=== PATIENT | female | born 1955 | race Caucasian/White ===

== ENCOUNTER 2020-11-13 15:13 | Outpatient (CLI) | payer MEDICARE, OTHER | END 2020-11-13 15:14 | disposition home or self-care (01) | LOC: BICMAMMO 15:13 | PROVIDERS: ATTEND Family Medicine | DX: Z12.31 Encounter for screening mammogram for malignant neoplasm of breast (principal); Z80.3 Family history of malignant neoplasm of breast; Z98.82 Breast implant status | CPT/HCPCS: 77063; 77067 ==

== ENCOUNTER 2020-11-13 15:49 | Outpatient (CLI) | payer MEDICARE, OTHER | END 2020-11-13 15:50 | disposition home or self-care (01) | LOC: BICRAD 15:49 | PROVIDERS: ATTEND Family Medicine | DX: G58.8 Other specified mononeuropathies (principal); M47.814 Spondylosis without myelopathy or radiculopathy, thoracic region; M43.13 Spondylolisthesis, cervicothoracic region | CPT/HCPCS: 72072 ==

== ENCOUNTER 2022-04-07 14:48 | Outpatient (CLI) | payer MEDICARE, OTHER | END 2022-04-07 14:49 | disposition home or self-care (01) | LOC: BICMAMMO 14:48 | PROVIDERS: ATTEND Internal Medicine Rheumatology | DX: M81.0 Age-related osteoporosis without current pathological fracture (principal); R06.09 Other forms of dyspnea; M85.88 Other specified disorders of bone density and structure, other site; Z98.82 Breast implant status | CPT/HCPCS: 71046; 77080 ==

== ENCOUNTER 2022-08-16 08:33 | Outpatient (CLI) | payer MEDICARE, OTHER | END 2022-08-16 08:34 | disposition home or self-care (01) | LOC: RAD 08:33 | PROVIDERS: ATTEND Internal Medicine Critical Care Medicine | DX: R06.00 Dyspnea, unspecified (principal) | CPT/HCPCS: 71046 ==

== ENCOUNTER 2024-02-17 15:06 | Inpatient (IN) | payer MEDICARE, OTHER ==
[2024-02-17] MEDS ORDERED: Acetaminophen 650 MG Suppository PR PRN (15:34)
[2024-02-17] MEDS ORDERED: Communication Order-Pharmacy FS SCH (15:35)
[2024-02-17 16:17] VITALS: BMI 35.1
[2024-02-17] MEDS: Piperacillin/Tazobactam 3.375 GM in Sodium Chloride 0.9% 100 ML IVPB SCH (16:36)
[2024-02-17] MEDS: Lactated Ringer's 1,000 ML IV SCH (16:36)
[2024-02-17] MEDS: FLU (Fluad Triv) TS24-25 (65UP)/MF59C/PF 45 MCG/0.5 ML Syringe IM ONE (16:47)
[2024-02-17 16:51] LABS: #Basophils 0.04 10x3/uL (0.0-0.2); %Basophils 0.3 % (0.0-1.0); %Eosinophils 0.7 % (0.0-10.0); %Lymphocytes 3.8 % (21.0-51.0); %Monocytes 3.9 % (0.0-10.0); %Neutrophils 89.1 % (42.0-75.0); Hematocrit 31.3 % (36.0-47.0); Hemoglobin 9.8 g/dL (12.0-16.0); Mean Corpuscular HGB CONC 31.3 g/dL (32.0-36.0); Mean Corpuscular Hemoglobin 29.5 pg (27.0-31.0); Mean Corpuscular Volume 94.3 fL (78.0-98.0); Mean Platelet Volume 12.3 fL (7.4-10.4); Platelet Count 192 10x3/uL (130-400); RBC Distribution Width 12.9 % (11.5-14.5); Red Blood Cell (RBC) Count 3.32 mill/uL (4.20-5.40)
[2024-02-17 17:06] LABS: INR-International Normal Ratio 1.2; PTT 33.2 sec (22.9-36.1)
[2024-02-17 17:09] LABS: Anion Gap 12 mmol/L (10-20); BUN (Urea Nitrogen) 39 mg/dL (9.8-20.1); Calc. Creatinine Clearance 27 mL/min (70-130); Calcium 7.9 mg/dL (7.8-10.44); Carbon Dioxide 19 mmol/L (23-31); Chloride 110 mmol/L (98-107); Estimated GFR 23; Glucose 81 mg/dL (80-115); Magnesium 1.6 mg/dL (1.6-2.6); Phosphorus 2.8 mg/dL (2.3-4.7); Potassium 3.7 mmol/L (3.5-5.1); Sodium 137 mmol/L (136-145)
[2024-02-17] MEDS ORDERED: Piperacillin/Tazobactam 3.375 GM in Sodium Chloride 0.9% 100 ML IVPB SCH (19:45)
[2024-02-17] MEDS: Acetaminophen 325 MG TAB PO PRN (20:23)
[2024-02-17] MEDS: Famotidine/PF 20 mg/2ml Vial SLOW IVP SCH (20:24)
[2024-02-17] MEDS: Melatonin 3 MG TAB PO SCH (21:09)
[2024-02-17] MEDS: HYDROcodone/Acetaminophen 10/325 mg Tablet PO SCH (23:28)
[2024-02-17] MEDS: tiZANidine HCl 4 MG TAB PO PRN (23:28)
[2024-02-18 07:03] LABS: #Basophils 0.05 10x3/uL (0.0-0.2); %Basophils 0.4 % (0.0-1.0); %Eosinophils 0.7 % (0.0-10.0); %Lymphocytes 5.5 % (21.0-51.0); %Monocytes 5.3 % (0.0-10.0); %Neutrophils 87.1 % (42.0-75.0); Hematocrit 34.1 % (36.0-47.0); Hemoglobin 10.3 g/dL (12.0-16.0); Mean Corpuscular HGB CONC 30.2 g/dL (32.0-36.0); Mean Corpuscular Hemoglobin 29.9 pg (27.0-31.0); Mean Corpuscular Volume 99.1 fL (78.0-98.0); Mean Platelet Volume 12.3 fL (7.4-10.4); Platelet Count 211 10x3/uL (130-400); RBC Distribution Width 13.2 % (11.5-14.5); Red Blood Cell (RBC) Count 3.44 mill/uL (4.20-5.40)
[2024-02-18 07:46] LABS: Anion Gap 18 mmol/L (10-20); BUN (Urea Nitrogen) 31 mg/dL (9.8-20.1); Calc. Creatinine Clearance 35 mL/min (70-130); Calcium 8.1 mg/dL (7.8-10.44); Carbon Dioxide 13 mmol/L (23-31); Chloride 112 mmol/L (98-107); Estimated GFR 32; Glucose 45 mg/dL (80-115); Potassium 3.7 mmol/L (3.5-5.1); Sodium 139 mmol/L (136-145)
[2024-02-18] MEDS: Enoxaparin 40 MG (0.4 mL) SYRINGE SC SCH (07:54)
[2024-02-18] MEDS: HYDROcodone/Acetaminophen 10/325 mg Tablet PO SCH (07:55)
[2024-02-18] MEDS: Dextrose 5% in Water 1,000 ML IV SCH (08:08)
[2024-02-18] MEDS: Dextrose 50% Abboject 50 ML SYRINGE SLOW IVP PRN (08:36)
[2024-02-18] MEDS: Ondansetron PF 4 MG/2 ML Vial IVP PRN (08:37)
[2024-02-18] MEDS: Pantoprazole 40 MG VIAL IVP SCH (10:39)
[2024-02-18 15:21] VITALS: BMI 35.1
[2024-02-18] MEDS: Dextrose 5 %-0.45 % NaCl 1,000 ML IV SCH (20:08)
[2024-02-19] MEDS: Pantoprazole 40 MG VIAL IVP SCH (07:43)
[2024-02-19] MEDS: Enoxaparin 30 MG (0.3 mL) SYRINGE SC SCH (08:36)
[2024-02-19] MEDS ORDERED: PROPOFOL 20 ML ONE (10:23)
[2024-02-19] MEDS ORDERED: Ondansetron PF 4 MG/2 ML Vial ONE (10:24)
[2024-02-19] MEDS ORDERED: Lidocaine 1% PF 5 ML VIAL ONE (10:24)
[2024-02-19] MEDS ORDERED: SUCCINYLCHOLINE/SOD CL,ISO/PF 200 MG/10 ML SYRINGE FS ONE (10:24)
[2024-02-19] MEDS ORDERED: Rocuronium Bromide 10 MG/ML (10ML VIAL) ONE (10:24)
[2024-02-19] MEDS ORDERED: cefOXitin 2 GM VIAL ONE (10:56)
[2024-02-19] MEDS ORDERED: SUGAMMADEX SODIUM 200 MG/2 ML VIAL ONE (11:54)
[2024-02-19] MEDS ORDERED: fentaNYL 50 mcg/mL 1 mL Vial ONE ×3 (12:04→12:35)
[2024-02-19] MEDS ORDERED: HYDROmorphone 0.5 MG/0.5 ML SYRINGE ONE ×2 (12:15→12:35)
[2024-02-19 12:40] LABS: #Basophils 0.07 10x3/uL (0.0-0.2); %Basophils 0.6 % (0.0-1.0); %Eosinophils 1.6 % (0.0-10.0); %Lymphocytes 9.7 % (21.0-51.0); %Monocytes 12.2 % (0.0-10.0); %Neutrophils 72.4 % (42.0-75.0); Hematocrit 36.7 % (36.0-47.0); Hemoglobin 11.9 g/dL (12.0-16.0); Mean Corpuscular HGB CONC 32.4 g/dL (32.0-36.0); Mean Corpuscular Hemoglobin 29.8 pg (27.0-31.0); Mean Corpuscular Volume 91.8 fL (78.0-98.0); Mean Platelet Volume 11.5 fL (7.4-10.4); Platelet Count 279 10x3/uL (130-400); RBC Distribution Width 13.2 % (11.5-14.5)
[2024-02-19] MEDS ORDERED: Dextrose 5% in Water 1,000 ML IV PRN (12:43)
[2024-02-19] MEDS ORDERED: Glucagon 1 MG/ML KIT IM PRN (12:43)
[2024-02-19] MEDS ORDERED: Calcium Carbonate 500 MG ChewTAB PO PRN (12:43)
[2024-02-19] MEDS ORDERED: Dextrose 50% Abboject 50 ML SYRINGE SLOW IVP PRN (12:43)
[2024-02-19] MEDS ORDERED: Promethazine HCl 25 MG/ML VIAL ONE (13:00)
[2024-02-19 13:13] LABS: Anion Gap 12 mmol/L (10-20); BUN (Urea Nitrogen) 10 mg/dL (9.8-20.1); Calc. Creatinine Clearance 36 mL/min (70-130); Calcium 7.3 mg/dL (7.8-10.44); Carbon Dioxide 17 mmol/L (23-31); Chloride 113 mmol/L (98-107); Estimated GFR 32; Glucose 118 mg/dL (80-115); Potassium 3.1 mmol/L (3.5-5.1); Sodium 139 mmol/L (136-145)
[2024-02-19] MEDS: D5 1/2 NS w/20 mEq KCL 1,000 ML IV SCH (13:32)
[2024-02-19] MEDS: Piperacillin/Tazobactam 3.375 GM in Sodium Chloride 0.9% 100 ML IVPB SCH (13:46)
[2024-02-19] MEDS: HYDROcodone/Acetaminophen 10/325 mg Tablet PO PRN (16:07)
[2024-02-19] MEDS: Ketorolac Tromethamine 30 MG (1 mL) VIAL IVP SCH (17:18)
[2024-02-19] MEDS: Ondansetron PF 4 MG/2 ML Vial IVP PRN (19:20)
[2024-02-19] MEDS: Morphine 2 MG/ML VIAL SLOW IVP PRN (21:10)
[2024-02-19] MEDS: Famotidine 20 MG TAB PO SCH (22:31)
[2024-02-20] MEDS: Pantoprazole DR 40 MG TAB PO SCH (09:11)
[2024-02-20 09:25] LABS: #Basophils 0.04 10x3/uL (0.0-0.2); %Basophils 0.3 % (0.0-1.0); %Eosinophils 0.5 % (0.0-10.0); %Lymphocytes 7.3 % (21.0-51.0); %Monocytes 13.3 % (0.0-10.0); Hematocrit 33.5 % (36.0-47.0); Hemoglobin 10.2 g/dL (12.0-16.0); Mean Corpuscular HGB CONC 30.4 g/dL (32.0-36.0); Mean Corpuscular Hemoglobin 29.5 pg (27.0-31.0); Mean Corpuscular Volume 96.8 fL (78.0-98.0); Mean Platelet Volume 11.3 fL (7.4-10.4); Platelet Count 292 10x3/uL (130-400); RBC Distribution Width 13.7 % (11.5-14.5); Red Blood Cell (RBC) Count 3.46 mill/uL (4.20-5.40)
[2024-02-20 09:44] LABS: Anion Gap 11 mmol/L (10-20); BUN (Urea Nitrogen) 9 mg/dL (9.8-20.1); Calc. Creatinine Clearance 49 mL/min (70-130); Carbon Dioxide 20 mmol/L (23-31); Chloride 111 mmol/L (98-107); Estimated GFR 47; Glucose 139 mg/dL (80-115); Potassium 3.5 mmol/L (3.5-5.1); Sodium 138 mmol/L (136-145)
[2024-02-21] MEDS ORDERED: Ondansetron ODT 4 MG TAB PO PRN (04:21)
[2024-02-21 06:10] LABS: Hemoglobin 10.1 g/dL (12.0-16.0); Mean Corpuscular HGB CONC 31.6 g/dL (32.0-36.0); Mean Corpuscular Hemoglobin 30.1 pg (27.0-31.0); Mean Corpuscular Volume 95.2 fL (78.0-98.0); Mean Platelet Volume 10.3 fL (7.4-10.4); Platelet Count 269 10x3/uL (130-400); RBC Distribution Width 13.8 % (11.5-14.5); Red Blood Cell (RBC) Count 3.36 mill/uL (4.20-5.40)
[2024-02-21 06:12] LABS: Anion Gap 12 mmol/L (10-20); BUN (Urea Nitrogen) 10 mg/dL (9.8-20.1); Calc. Creatinine Clearance 54 mL/min (70-130); Carbon Dioxide 19 mmol/L (23-31); Chloride 110 mmol/L (98-107); Estimated GFR 52; Glucose 121 mg/dL (80-115); Potassium 3.3 mmol/L (3.5-5.1); Sodium 138 mmol/L (136-145)
[2024-02-21 07:58] LABS: Band 1 % (5-11); Burr Cells MODERATE= 6-15 cells HPF (0-1); Eosinophils 4 % (0-10); Lymphocytes 6 % (21-51); Monocytes 7 % (0-10); Neutrophil 80 % (42-75); Platelet Adequacy Comment Platelets Normal; Polychromasia SLIGHT = 2-3 cells HPF (0-2); Reactive Lymphocytes 2 % (0-10)
[2024-02-21] MEDS: Promethazine HCl 12.5 MG in Sodium Chloride 0.9% 50 ML IVPB PRN (10:54)
[2024-02-21] MEDS: Potassium Chloride 20 MEQ TAB PO SCH (10:54)
[2024-02-21] MEDS: Lactated Ringer's 500 ML IV SCH (15:30)
[2024-02-21] MEDS: Potassium Chloride 20 MEQ in Lactated Ringer's 1,000 ML IV SCH (16:50)
[2024-02-21] MEDS: Acetaminophen 500 MG TAB PO SCH (16:50)
[2024-02-21] MEDS: Famotidine/PF 20 mg/2ml Vial SLOW IVP SCH (20:11)
[2024-02-21] MEDS ORDERED: Famotidine 20 MG TAB PO SCH (21:00)
[2024-02-22] MEDS ORDERED: Glucagon 1 MG/ML KIT IM PRN (02:32)
[2024-02-22] MEDS ORDERED: Dextrose 5% in Water 1,000 ML IV PRN (02:32)
[2024-02-22] MEDS: Morphine 2 MG/ML VIAL SLOW IVP PRN (05:48)
[2024-02-22] MEDS: Dextrose 50% Abboject 50 ML SYRINGE SLOW IVP PRN (05:49)
[2024-02-22 06:22] LABS: #Basophils 0.08 10x3/uL (0.0-0.2); %Basophils 0.7 % (0.0-1.0); %Lymphocytes 12.6 % (21.0-51.0); %Monocytes 8.3 % (0.0-10.0); %Neutrophils 71.8 % (42.0-75.0); Hematocrit 29.6 % (36.0-47.0); Hemoglobin 9.3 g/dL (12.0-16.0); Mean Corpuscular HGB CONC 31.4 g/dL (32.0-36.0); Mean Corpuscular Hemoglobin 29.4 pg (27.0-31.0); Mean Corpuscular Volume 93.7 fL (78.0-98.0); Mean Platelet Volume 10.4 fL (7.4-10.4); Platelet Count 333 10x3/uL (130-400); RBC Distribution Width 14.1 % (11.5-14.5); Red Blood Cell (RBC) Count 3.16 mill/uL (4.20-5.40)
[2024-02-22 06:39] LABS: Anion Gap 15 mmol/L (10-20); BUN (Urea Nitrogen) 13 mg/dL (9.8-20.1); Calc. Creatinine Clearance 58 mL/min (70-130); Carbon Dioxide 18 mmol/L (23-31); Chloride 110 mmol/L (98-107); Estimated GFR 57; Glucose 63 mg/dL (80-115); Potassium 3.8 mmol/L (3.5-5.1); Sodium 139 mmol/L (136-145)
[2024-02-22] MEDS: Dextrose 5 %-0.45 % NaCl 1,000 ML IV SCH (12:51)
[2024-02-22] MEDS: Famotidine 20 MG TAB PO SCH (20:54)
[2024-02-22] MEDS: Promethazine 25 MG TAB PO PRN (22:52)
[2024-02-23] MEDS: Pantoprazole 40 MG VIAL IVP SCH (09:27)
[2024-02-24 05:58] LABS: #Basophils 0.05 10x3/uL (0.0-0.2); %Basophils 0.4 % (0.0-1.0); %Eosinophils 3.4 % (0.0-10.0); %Lymphocytes 12.6 % (21.0-51.0); %Monocytes 8.4 % (0.0-10.0); %Neutrophils 73.2 % (42.0-75.0); Hemoglobin 8.9 g/dL (12.0-16.0); Mean Corpuscular HGB CONC 31.8 g/dL (32.0-36.0); Mean Corpuscular Hemoglobin 29.5 pg (27.0-31.0); Mean Corpuscular Volume 92.7 fL (78.0-98.0); Mean Platelet Volume 9.4 fL (7.4-10.4); Platelet Count 347 10x3/uL (130-400); RBC Distribution Width 14.1 % (11.5-14.5); Red Blood Cell (RBC) Count 3.02 mill/uL (4.20-5.40)
[2024-02-24 06:28] LABS: Anion Gap 11 mmol/L (10-20); BUN (Urea Nitrogen) 8 mg/dL (9.8-20.1); Calc. Creatinine Clearance 78 mL/min (70-130); Calcium 6.1 mg/dL (7.8-10.44); Carbon Dioxide 20 mmol/L (23-31); Chloride 111 mmol/L (98-107); Estimated GFR 82; Glucose 115 mg/dL (80-115); Potassium 3.2 mmol/L (3.5-5.1); Sodium 139 mmol/L (136-145)
[2024-02-24] MEDS: Enoxaparin 40 MG (0.4 mL) SYRINGE SC SCH (08:14)
[2024-02-24] MEDS ORDERED: Potassium Chloride 40 MEQ in Premix 1 BAG IVPB SCH (09:00)
[2024-02-24] MEDS ORDERED: Calcium Gluconate 100 MG/ML 10 ML IVPB SCH (09:00)
[2024-02-24] MEDS ORDERED: Pantoprazole 40 MG VIAL IVP SCH (09:00)
[2024-02-24] MEDS: Potassium Chloride 20 MEQ in Premix 1 BAG IVPB SCH (10:10)
[2024-02-24] MEDS: CALCIUM GLUC 1 GM/NS 50 ML 1 GM in Premix 1 BAG IVPB SCH (10:10)
[2024-02-25 05:46] LABS: #Basophils 0.04 10x3/uL (0.0-0.2); %Basophils 0.3 % (0.0-1.0); %Eosinophils 2.9 % (0.0-10.0); %Lymphocytes 12.9 % (21.0-51.0); %Monocytes 7.1 % (0.0-10.0); %Neutrophils 74.4 % (42.0-75.0); Hematocrit 30.2 % (36.0-47.0); Hemoglobin 9.5 g/dL (12.0-16.0); Mean Corpuscular HGB CONC 31.5 g/dL (32.0-36.0); Mean Corpuscular Hemoglobin 29.6 pg (27.0-31.0); Mean Corpuscular Volume 94.1 fL (78.0-98.0); Mean Platelet Volume 9.4 fL (7.4-10.4); Platelet Count 403 10x3/uL (130-400); RBC Distribution Width 14.2 % (11.5-14.5); Red Blood Cell (RBC) Count 3.21 mill/uL (4.20-5.40)
[2024-02-25 06:24] LABS: Anion Gap 14 mmol/L (10-20); BUN (Urea Nitrogen) 5 mg/dL (9.8-20.1); Calc. Creatinine Clearance 78 mL/min (70-130); Calcium 6.3 mg/dL (7.8-10.44); Carbon Dioxide 18 mmol/L (23-31); Chloride 111 mmol/L (98-107); Estimated GFR 82; Glucose 105 mg/dL (80-115); Potassium 3.6 mmol/L (3.5-5.1); Sodium 139 mmol/L (136-145)
[2024-02-25] MEDS ORDERED: Acetaminophen 325 MG TAB PO PRN (09:41)
[2024-02-25] MEDS: Dextrose 5 %-0.45 % NaCl 1,000 ML IV SCH (09:57)
[2024-02-25] MEDS: Ketorolac Tromethamine 30 MG (1 mL) VIAL IVP PRN (09:58)
[2024-02-26 05:26] LABS: #Basophils 0.03 10x3/uL (0.0-0.2); %Basophils 0.3 % (0.0-1.0); %Eosinophils 1.4 % (0.0-10.0); %Monocytes 7.9 % (0.0-10.0); %Neutrophils 76.4 % (42.0-75.0); Hematocrit 26.6 % (36.0-47.0); Hemoglobin 8.4 g/dL (12.0-16.0); Mean Corpuscular HGB CONC 31.6 g/dL (32.0-36.0); Mean Corpuscular Hemoglobin 29.6 pg (27.0-31.0); Mean Corpuscular Volume 93.7 fL (78.0-98.0); Mean Platelet Volume 9.1 fL (7.4-10.4); Platelet Count 389 10x3/uL (130-400); RBC Distribution Width 14.3 % (11.5-14.5); Red Blood Cell (RBC) Count 2.84 mill/uL (4.20-5.40)
[2024-02-26 06:12] LABS: Phosphorus 1.8 mg/dL (2.3-4.7)
[2024-02-26 06:23] LABS: Anion Gap 12 mmol/L (10-20); BUN (Urea Nitrogen) 6 mg/dL (9.8-20.1); Calc. Creatinine Clearance 79 mL/min (70-130); Carbon Dioxide 20 mmol/L (23-31); Chloride 112 mmol/L (98-107); Estimated GFR 83; Glucose 100 mg/dL (80-115); Magnesium 1.4 mg/dL (1.6-2.6); Potassium 3.6 mmol/L (3.5-5.1); Sodium 140 mmol/L (136-145)
[2024-02-26] MEDS ORDERED: Electrolyte Replacement Protocol 1 EACH FS SCH (08:45)
[2024-02-26] MEDS ORDERED: Electrolyte Replacement Protocol FS PRN (09:15)
[2024-02-26] MEDS: Metoclopramide HCl 10 MG (2 mL) VIAL IVP SCH (09:55)
[2024-02-26] MEDS: PHOS-NAK 1 PKT PACK PO SCH (09:56)
[2024-02-26] MEDS: Magnesium Sulfate In Water 4 GM in Premix 1 BAG IVPB SCH (09:59)
[2024-02-26] MEDS: Potassium Phosphate 30 MMOL in Sodium Chloride 0.9% 250 ML 250 ML IVPB SCH (11:18)
[2024-02-27 05:51] LABS: #Basophils Less than 0.03 10x3/uL (0.0-0.2); %Basophils 0.2 % (0.0-1.0); %Lymphocytes 12.8 % (21.0-51.0); %Monocytes 9.2 % (0.0-10.0); %Neutrophils 75.5 % (42.0-75.0); Hematocrit 25.9 % (36.0-47.0); Hemoglobin 8.2 g/dL (12.0-16.0); Mean Corpuscular HGB CONC 31.7 g/dL (32.0-36.0); Mean Corpuscular Hemoglobin 29.3 pg (27.0-31.0); Mean Corpuscular Volume 92.5 fL (78.0-98.0); Mean Platelet Volume 9.2 fL (7.4-10.4); Platelet Count 432 10x3/uL (130-400); RBC Distribution Width 14.5 % (11.5-14.5)
[2024-02-27 06:15] LABS: Anion Gap 11 mmol/L (10-20); BUN (Urea Nitrogen) 4 mg/dL (9.8-20.1); Calc. Creatinine Clearance 85 mL/min (70-130); Calcium 5.5 mg/dL (7.8-10.44); Carbon Dioxide 20 mmol/L (23-31); Chloride 110 mmol/L (98-107); Estimated GFR 90; Glucose 135 mg/dL (80-115); Magnesium 1.9 mg/dL (1.6-2.6); Sodium 138 mmol/L (136-145)
[2024-02-27] MEDS: Magnesium 2 GM/50 ML(in water) 2 GM in Premix 1 BAG IVPB SCH (08:45)
[2024-02-27] MEDS: Potassium Chloride 20 MEQ TAB PO SCH ×2 (08:46→11:32)
[2024-02-27] MEDS: PHOS-NAK 1 PKT PACK PO SCH (08:46)
[2024-02-27] MEDS: Albumin 25% 25 GM (100 mL) BOT IVPB SCH (11:31)
[2024-02-27] MEDS: Furosemide 40 MG (4 mL) VIAL SLOW IVP SCH (11:32)
[2024-02-27] MEDS: CALCIUM GLUC 1 GM/NS 50 ML 1 GM in Premix 1 BAG IVPB SCH (13:34)
[2024-02-27] MEDS: Calcium Gluconate 4.6 MEQ in Sodium Chloride 0.9% 100 ML IVPB ONE (13:35)
[2024-02-28 05:39] LABS: #Basophils 0.04 10x3/uL (0.0-0.2); %Basophils 0.4 % (0.0-1.0); %Eosinophils 0.9 % (0.0-10.0); %Lymphocytes 13.3 % (21.0-51.0); %Monocytes 11.3 % (0.0-10.0); %Neutrophils 73.1 % (42.0-75.0); Hematocrit 23.4 % (36.0-47.0); Hemoglobin 7.3 g/dL (12.0-16.0); Mean Corpuscular HGB CONC 31.2 g/dL (32.0-36.0); Mean Corpuscular Hemoglobin 29.2 pg (27.0-31.0); Mean Corpuscular Volume 93.6 fL (78.0-98.0); Mean Platelet Volume 9.7 fL (7.4-10.4); Platelet Count 434 10x3/uL (130-400); RBC Distribution Width 14.6 % (11.5-14.5)
[2024-02-28 06:15] LABS: Phosphorus 1.7 mg/dL (2.3-4.7)
[2024-02-28 06:17] LABS: Anion Gap 12 mmol/L (10-20); BUN (Urea Nitrogen) 6 mg/dL (9.8-20.1); Calc. Creatinine Clearance 75 mL/min (70-130); Calcium 5.9 mg/dL (7.8-10.44); Carbon Dioxide 22 mmol/L (23-31); Chloride 108 mmol/L (98-107); Estimated GFR 78; Glucose 105 mg/dL (80-115); Potassium 3.6 mmol/L (3.5-5.1); Sodium 138 mmol/L (136-145)
[2024-02-28] MEDS: Magnesium 2 GM/50 ML(in water) 2 GM in Premix 1 BAG IVPB SCH (08:16)
[2024-02-28] MEDS: PHOS-NAK 1 PKT PACK PO SCH (08:16)
[2024-02-28] MEDS ORDERED: Dextrose 5% in Water 1,000 ML IV PRN (09:17)
[2024-02-28] MEDS: BuPROPion XL 150 MG ER.TAB PO SCH (09:28)
[2024-02-28] MEDS ORDERED: GASTROGRAFIN 30 ML BOT ONE (10:10)
[2024-02-28] MEDS ORDERED: Iopamidol-370 76% 500 ML MDV (1 ML CHARGE) ONE (10:10)
[2024-02-28] MEDS: Rosuvastatin 20 MG TAB PO SCH (21:43)
[2024-02-28] MEDS: Nortriptyline HCl 25 MG CAP PO SCH (21:43)
[2024-02-29 05:16] LABS: #Basophils 0.03 10x3/uL (0.0-0.2); %Basophils 0.3 % (0.0-1.0); %Eosinophils 0.8 % (0.0-10.0); %Lymphocytes 12.2 % (21.0-51.0); %Monocytes 11.3 % (0.0-10.0); %Neutrophils 74.3 % (42.0-75.0); Hematocrit 23.6 % (36.0-47.0); Hemoglobin 7.3 g/dL (12.0-16.0); Mean Corpuscular HGB CONC 30.9 g/dL (32.0-36.0); Mean Corpuscular Hemoglobin 29.1 pg (27.0-31.0); Mean Platelet Volume 9.6 fL (7.4-10.4); Platelet Count 468 10x3/uL (130-400); RBC Distribution Width 14.6 % (11.5-14.5); Red Blood Cell (RBC) Count 2.51 mill/uL (4.20-5.40)
[2024-02-29 05:21] LABS: Anion Gap 11 mmol/L (10-20); BUN (Urea Nitrogen) 5 mg/dL (9.8-20.1); Calc. Creatinine Clearance 86 mL/min (70-130); Calcium 5.7 mg/dL (7.8-10.44); Carbon Dioxide 21 mmol/L (23-31); Chloride 109 mmol/L (98-107); Estimated GFR 91; Glucose 103 mg/dL (80-115); Potassium 3.3 mmol/L (3.5-5.1); Sodium 138 mmol/L (136-145)
[2024-02-29 05:31] LABS: Phosphorus 2.2 mg/dL (2.3-4.7)
[2024-02-29] MEDS: Spironolactone 25 MG TAB PO SCH (08:12)
[2024-02-29] MEDS: BuPROPion XL 150 MG ER.TAB PO SCH (08:12)
[2024-02-29] MEDS: Potassium Chloride 20 MEQ TAB PO SCH (08:12)
[2024-02-29] MEDS: Piperacillin/Tazobactam 3.375 GM in Sodium Chloride 0.9% 100 ML IVPB SCH ×2 (08:12→11:57)
[2024-02-29] MEDS: Pantoprazole DR 40 MG TAB PO SCH (08:12)
[2024-02-29] MEDS ORDERED: fentaNYL 50 mcg/mL 1 mL Vial ONE ×2 (13:37→15:16)
[2024-02-29] MEDS ORDERED: Midazolam HCl 2 mg/2 ml Vial ONE ×2 (13:37→15:16)
[2024-03-01 05:24] LABS: #Basophils 0.05 10x3/uL (0.0-0.2); %Basophils 0.5 % (0.0-1.0); %Eosinophils 0.9 % (0.0-10.0); %Lymphocytes 11.7 % (21.0-51.0); %Monocytes 12.6 % (0.0-10.0); %Neutrophils 73.4 % (42.0-75.0); Hematocrit 22.9 % (36.0-47.0); Mean Corpuscular HGB CONC 30.6 g/dL (32.0-36.0); Mean Corpuscular Hemoglobin 28.9 pg (27.0-31.0); Mean Corpuscular Volume 94.6 fL (78.0-98.0); Mean Platelet Volume 9.3 fL (7.4-10.4); Platelet Count 480 10x3/uL (130-400); RBC Distribution Width 14.7 % (11.5-14.5); Red Blood Cell (RBC) Count 2.42 mill/uL (4.20-5.40)
[2024-03-01 06:31] LABS: Anion Gap 14 mmol/L (10-20); BUN (Urea Nitrogen) 7 mg/dL (9.8-20.1); Calc. Creatinine Clearance 80 mL/min (70-130); Calcium 5.6 mg/dL (7.8-10.44); Carbon Dioxide 18 mmol/L (23-31); Chloride 108 mmol/L (98-107); Estimated GFR 84; Glucose 81 mg/dL (80-115); Potassium 4.2 mmol/L (3.5-5.1); Sodium 136 mmol/L (136-145)
[2024-03-01] MEDS: Calcium Gluc 4.6 MEQ/10 ML (100 MG/ML) SLOW IVP SCH (07:55)
[2024-03-01] MEDS: Enoxaparin 40 MG (0.4 mL) SYRINGE SC SCH (07:56)
[2024-03-01 14:29] VITALS: BP 136/80; TEMP 98.1
== END 2024-03-01 14:09 | disposition home or self-care (01) | DRG 853 ==
LOC: T4-A 15:29
PROVIDERS: ADMIT Family Medicine; ATTEND Family Medicine
PROC: 3E03329 Introduction of Other Anti-infective into Peripheral Vein, Percutaneous Approach (ICD-10-PCS; 2024-02-17)
PROC: 0D1N0Z4 Bypass Sigmoid Colon to Cutaneous, Open Approach (ICD-10-PCS; 2024-02-19)
PROC: 0DBN0ZZ Excision of Sigmoid Colon, Open Approach (ICD-10-PCS; 2024-02-19)
PROC: 0W9G3ZZ Drainage of Peritoneal Cavity, Percutaneous Approach (ICD-10-PCS; principal; 2024-02-29)
DX: A41.9 Sepsis, unspecified organism (principal); K65.1 Peritoneal abscess; K56.7 Ileus, unspecified; K57.20 Diverticulitis of large intestine with perforation and abscess without bleeding; N17.9 Acute kidney failure, unspecified; R65.20 Severe sepsis without septic shock; M32.9 Systemic lupus erythematosus, unspecified; M79.7 Fibromyalgia; H81.09 Meniere's disease, unspecified ear; N18.9 Chronic kidney disease, unspecified; E16.2 Hypoglycemia, unspecified; E87.6 Hypokalemia; E83.51 Hypocalcemia; N18.30 Chronic kidney disease, stage 3 unspecified; E83.42 Hypomagnesemia; E83.39 Other disorders of phosphorus metabolism; Z98.890 Other specified postprocedural states; Z79.899 Other long term (current) drug therapy
CPT/HCPCS: 36415; 36416; 49406; 74177; 80048; 82040; 83605; 83735; 84100; 85025; 85610; 85730; 86850; 86900; 86901; 87070; 87205; 88307; 88309; 97139; 99152; 99153; A4314; A4649; C1729; J0612; J0613; J0694; J1650; J1885; J1940; J2250; J2272; J2405; J2470; J2543; J2550; J2704; J2765; J3010; J3475; J3480; J3490; J7042; J7050; J7070; J7120; J7999; P9047; Q0169; Q9963; Q9967

== ENCOUNTER 2024-12-06 14:17 | Outpatient (CLI) | payer MEDICARE, OTHER | END 2024-12-06 14:18 | disposition home or self-care (01) | LOC: BICMAMMO 14:17 | PROVIDERS: ATTEND Internal Medicine Rheumatology | DX: M81.0 Age-related osteoporosis without current pathological fracture (principal); M85.851 Other specified disorders of bone density and structure, right thigh; M85.852 Other specified disorders of bone density and structure, left thigh | CPT/HCPCS: 77080 ==